=== PATIENT | female | born 1990 | race Caucasian/White ===

== ENCOUNTER 2020-02-25 16:01 | Emergency (ER) | payer BC, MEDICAID ==
[~2020-02-25] VITALS: Ht 162.6 cm; Wt 79.4 kg
[~2020-02-25 16:01] MED LIST: IBUP800T24
[2020-02-25 21:00] VITALS: BP 102/60
== END 2020-02-25 21:10 | disposition home or self-care (01) ==
LOC: ER 16:02
DX: R10.30 Lower abdominal pain, unspecified (principal); Z88.1 Allergy status to other antibiotic agents
CPT/HCPCS: 36415; 84702